=== PATIENT | male | born 1945 | race Caucasian/White ===

== ENCOUNTER 2023-02-11 07:44 | Day surgery (SDC) | payer MEDICARE, BC ==
[~2023-02-11] VITALS: Ht 152.4 cm; Wt 119.0 kg
[2023-02-11] VITALS (10 sets, daily range): BP systolic 120–171; BP diastolic 78–95
[2023-02-11] MEDS ORDERED: MULT-227 PO (08:29)
[2023-02-11] MEDS ORDERED: LEVO112T5 PO (08:29)
[2023-02-11] MEDS ORDERED: FLO0.4C (08:29)
[2023-02-11] MEDS ORDERED: ROSU40TA22 PO (08:29)
[2023-02-11] MEDS ORDERED: APIX5TAB3 PO (08:29)
[2023-02-11] MEDS ORDERED: RYT225T PO (08:29)
[2023-02-11] MEDS ORDERED: ALBU17AE26 (08:29)
[2023-02-11] MEDS ORDERED: FLUT1BLS10 INH (08:29)
[2023-02-11] MEDS ORDERED: DILT360C32 PO (08:29)
[2023-02-11 08:45] LABS: BASOPHILS % (AUTO) 0.4 % (0-1); EOSINOPHILS # (AUTO) 0.5 X10'3 (0-0.9); EOSINOPHILS % (AUTO) 6.9 % (0-6); HEMATOCRIT 49.6 % (42.0-52.0); HEMOGLOBIN 16.6 g/dl (14.0-17.9); MEAN CORPUSCULAR HEMOGLOBIN 32.2 PG (27.0-31.0); MEAN CORPUSCULAR HGB CONC 33.4 g/dL (33.0-36.5); MEAN CORPUSCULAR VOLUME 96.4 FL (78-98); MEAN PLATELET VOLUME 8.2 FL (7.4-10.4); MONOCYTES # (AUTO) 0.9 X10'3 (0-0.9); MONOCYTES % (AUTO) 12.6 % (2-12); NEUTROPHILS # (AUTO) 4.4 X10'3 (1.8-7.7); NEUTROPHILS % (AUTO) 65.1 % (42-75); PLATELET COUNT 239 X10'3 (140-440); RED BLOOD COUNT 5.15 X10'6 (4.70-6.10); WHITE BLOOD COUNT 6.8 X10'3 (4.5-11.0)
[2023-02-11 09:01] LABS: ALBUMIN 3.8 G/DL (3.4-5.0); ANION GAP 11 (8-16); BLOOD UREA NITROGEN 17 MG/DL (7-18); BUN/CREATININE RATIO 14.9 (10.0-20.0); CALCIUM 8.8 MG/DL (8.5-10.1); CHLORIDE 104 MMOL/L (99-107); CREATININE 1.14 MG/DL (0.60-1.10); GLUCOSE 113 MG/DL (70-104); MAGNESIUM 2.3 MG/DL (1.5-2.4); POTASSIUM 4.2 MMOL/L (3.5-5.1); SODIUM 141 MMOL/L (135-145); TOTAL CARBON DIOXIDE 25.7 MMOL/L (24-32); eGFR 62 ML/MIN
[2023-02-11] MEDS ORDERED: MIDAZolam 1mg/ml 10ml vial IV ONE (09:10)
[2023-02-11] MEDS ORDERED: normal saline 1000ml 1,000 ML IV SCH (09:10)
[2023-02-11] MEDS ORDERED: fentaNYL/PF 50MCG/1 ML 2ML syringe IV ONE (09:10)
== END 2023-02-11 10:50 | disposition home or self-care (01) ==
LOC: SSTAY O 07:44
PROVIDERS: ATTEND Internal Medicine Cardiovascular Disease
DX: I48.3 Typical atrial flutter (principal); I48.0 Paroxysmal atrial fibrillation; I10 Essential (primary) hypertension; E78.5 Hyperlipidemia, unspecified; G47.30 Sleep apnea, unspecified; I73.9 Peripheral vascular disease, unspecified; E66.9 Obesity, unspecified; Z68.43 Body mass index [BMI] 50.0-59.9, adult; Z79.01 Long term (current) use of anticoagulants; Z79.899 Other long term (current) drug therapy
CPT/HCPCS: 36415; 80048; 83735; 85025; 85610; 92960; 93005; J2250; J3010; J7030; A4620

== ENCOUNTER 2023-03-11 07:39 | Day surgery (SDC) | payer MEDICARE, BC ==
[~2023-03-11] VITALS: Ht 177.8 cm; Wt 115.2 kg
[~2023-03-11 07:39] MED LIST: ALBU17AE26; APIX5TAB3 PO; DILT360C25 PO; FLO0.4C; FLUT1BLS10 INH; LEVO112T5 PO; MULT-227 PO; ROSU40TA22 PO; RYT225T PO
[2023-03-11] MEDS ORDERED: normal saline 1000ml 1,000 ML IV SCH (07:55)
[2023-03-11] MEDS ORDERED: fentaNYL/PF 50MCG/1 ML 2ML syringe IV ONE (07:55)
[2023-03-11] MEDS ORDERED: MIDAZolam 1mg/ml 10ml vial IV ONE (07:55)
== END 2023-03-11 09:01 | disposition home or self-care (01) ==
LOC: SSTAY O 07:39
PROVIDERS: ATTEND Internal Medicine Cardiovascular Disease
DX: I48.3 Typical atrial flutter (principal); Z53.8 Procedure and treatment not carried out for other reasons
CPT/HCPCS: 93005; A4620; J7030